=== PATIENT | female | born 1980 | race Two or more races ===

== ENCOUNTER 2018-09-18 13:56 | Emergency (ER) | payer SELFPAY ==
[~2018-09-18] VITALS: Ht 165.1 cm; Wt 65.8 kg
[2018-09-18 15:00] VITALS: BP 110/59
[2018-09-18] MEDS: IV NORMAL SALINE 1000ML BAG 1,000 ML IV ONE (15:03)
[2018-09-18] MEDS: MORPHINE SULFATE 2 MG/ML VIAL. IV ONE (15:04)
[2018-09-18] MEDS: IOHEXOL 300 MG/ML 100ML VIAL. IV ONE (15:15)
[2018-09-18] MEDS ORDERED: IOHEXOL 300 MG/ML 100ML VIAL. ONE (15:17)
[2018-09-18 15:22] LABS: BILIRUBIN,URINE NEGATIVE (NEG); CLARITY,URINE CLEAR; COLOR,URINE YELLOW; NITRITE,URINE NEGATIVE (NEG); PROTEIN,URINE NEGATIVE (NEG-TRACE); UROBILINOGEN,URINE 0.2 mg/dL (0.2 mg/dL)
[2018-09-18 15:26] LABS: BARBITURATES NEG (NEG); BENZODIAZEPINES NEG (NEG); CANNABINOIDS NEG (NEG); COCAINE NEG (NEG); METHADONE NEG (NEG); OPIATES NEG (NEG); PHENCYCLIDINE NEG (NEG)
[2018-09-18 15:27] LABS: AMPHETAMINE/METHAMPHETAMINE NEG (NEG)
[2018-09-18 15:29] LABS: BACTERIA,URINE MANY /HPF (0-FEW); RBC,URINE OCC /HPF (0-2); SQUAMOUS EPITHELIAL CELL,UR MOD /LPF; WBC,URINE OCC /HPF (0-4)
[2018-09-18] MEDS ORDERED: CONTRAST GIVEN. MC PRN (15:30)
[2018-09-18 16:08] LABS: BASO % 0 % (0-3); EOS # 0.1 x10^3/uL (0.0-0.7); EOS % 1 % (0-3); HEMATOCRIT 36.7 % (36.0-47.0); HEMOGLOBIN 11.8 g/dL (12.0-15.5); LYMPH # 1.1 x10^3/uL (1.0-4.8); LYMPH % 15 % (24-48); MEAN CORPUSCULAR HEMOGLOBIN 27 pg (25-35); MEAN CORPUSCULAR HGB CONC 32 g/dL (31-37); MEAN CORPUSCULAR VOLUME 83 fL (79-100); MONO # 0.4 x10^3/uL (0.0-1.1); MONO % 6 % (0-9); NEUT # 5.8 x10^3uL (1.8-7.7); NEUT % 78 % (31-73); PLATELET COUNT 188 x10^3/uL (140-400); RED BLOOD COUNT 4.42 x10^6/uL (3.50-5.40); RED CELL DISTRIBUTION WIDTH 12.9 % (11.5-14.5); WHITE BLOOD COUNT 7.3 x10^3/uL (4.0-11.0)
[2018-09-18 16:14] LABS: CALCIUM 8.4 mg/dL (8.5-10.1); CREATININE 0.7 mg/dL (0.6-1.0); GFR 92.7
[2018-09-18 16:19] LABS: ALBUMIN 3.1 g/dL (3.4-5.0); ALBUMIN/GLOBULIN RATIO 0.9 (1.0-1.7); TOTAL BILIRUBIN 0.2 mg/dL (0.2-1.0); TOTAL PROTEIN 6.7 g/dL (6.4-8.2)
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
[2018-09-18] MEDS ORDERED: DICL50TA2 PO (16:53)
[2018-09-18] MEDS ORDERED: CEPH500T PO (16:53)
[2018-09-18] MEDS ORDERED: CYCL10TA2 PO (16:53)
== END 2018-09-18 17:21 | disposition home or self-care (01) ==
LOC: ER 13:56
DX: S13.8XXA Sprain of joints and ligaments of other parts of neck, initial encounter (principal); S20.219A Contusion of unspecified front wall of thorax, initial encounter; N39.0 Urinary tract infection, site not specified; Z98.51 Tubal ligation status; Z98.890 Other specified postprocedural states; V43.62XA Car passenger injured in collision with other type car in traffic accident, initial encounter; Y93.89 Activity, other specified; Y92.410 Unspecified street and highway as the place of occurrence of the external cause; Y99.8 Other external cause status
CPT/HCPCS: 36415; 70450; 71260; 72125; 80053; 80307; 81001; 81025; 83690; 85025; 96374; 99284; G0480; J2270; J7030; Q9967; 96361